=== PATIENT | male | born 1955 | race African-American/Black ===

== ENCOUNTER → 2017-02-26 | Outpatient (CLI) | payer MEDICARE, OTHER ==
[2015-08-31 14:58] VITALS: BP 146/88
[~2017-02-26] MED LIST: CLON1TAB3 PO; ZIPR60CA3 PO; ZIPR80CA3 PO
--- NOTE | 2017-02-26 08:30 | RAD ---
Indication injury to the long finger one week ago. Persistent pain. AP oblique and lateral views of the right hand were obtained. No bony abnormality is seen
== END | disposition home or self-care (01) ==
LOC: RAD 06:16
PROVIDERS: ATTEND Internal Medicine
DX: S60.221A Contusion of right hand, initial encounter (principal); X58.XXXA Exposure to other specified factors, initial encounter; Y93.89 Activity, other specified; Y92.89 Other specified places as the place of occurrence of the external cause; Y99.8 Other external cause status
CPT/HCPCS: 73130

== ENCOUNTER → 2018-11-15 | Day surgery (SDC) | payer OTHER ==
[~2018-11-15] MED LIST changes: +ATOR10TA60 PO; +CLON1TAB11 PO; -CLON1TAB3 PO; +FLUO20CA8 PO; +IV RINGERS,LACTATED 1000ML 1,000 ML IV SCH; +LIDOCAINE 1% PF 2 ML VIAL. ID PRN; +PROCHLORPERAZINE 10 MG/2 ML VIAL. IV PRN; +PROPOFOL 20 ML IV ONE; +fentaNYL PF VIAL 100 MCG/2 ML VIAL IV PRN
--- NOTE | 2018-11-15 12:36 | PDOC1 ---
History and Physical Date of Admission Date of Admission DATE: 11/15/18 TIME: 12:31 Source Source: Chart review, Patient History of Present Illness History of Present Illness 63 y/o male with no prior screening here for screening colonoscopy. No GI complaints and no GI family history other than gastric cancer in father. Past Medical History Cardiovascular: HTN, Hyperlipidemia Psych: Depression Musculoskeletal: Osteoarthritis Past Surgical History Past Surgical History: Total knee replacement Family History Family History: Diabetes Social History Smoke: No ALCOHOL: rare Drugs: None Current Medications Current Medications Current Medications Fentanyl Citrate (Fentanyl 2ml Vial) 25 mcg PRN Q5MIN PRN IV MILD PAIN; Start 11/15/18 at 07:00; Stop 11/16/18 at 06:59 Fentanyl Citrate (Fentanyl 2ml Vial) 50 mcg PRN Q5MIN PRN IV MODERATE TO SEVERE PAIN; Start 11/15/18 at 07:00; Stop 11/16/18 at 06:59 Ringer's Solution 1,000 ml @ 30 mls/hr Q24H IV Last administered on 11/15/18at 12:24; Start 11/15/18 at 07:00; Stop 11/15/18 at 18:59 Lidocaine HCl (Xylocaine-Mpf 1% 2ml Vial) 2 ml PRN 1X PRN ID IV START; Start at 07:00; Stop 11/16/18 at 06:59 Prochlorperazine Edisylate (Compazine) 5 mg PACU PRN PRN IV NAUSEA, MRX1; Start 11/15/18 at 07:00; Stop 11/16/18 at 06:59 Active Scripts Active Reported Atorvastatin Calcium 10 Mg Tablet 10 Mg PO HS Fluoxetine Hcl 20 Mg Capsule 20 Mg PO DAILY Ziprasidone Hcl 60 Mg Capsule 60 Mg PO BID Ziprasidone Hcl 80 Mg Capsule 80 Mg PO BID Clonazepam 1 Mg Tablet 1 Tab PO QHS Allergies Allergies: Coded Allergies: oxycodone (Verified Adverse Reaction, Intermediate, Nausea and Vomiting, ) ROS Review of System Otherwise negative. Physical Exam General: Alert, Oriented X3, Cooperative, No acute distress Lungs: Clear to auscultation Heart: S1S2, RRR, no gallops, no murmurs Abdomen: Normal bowel sounds, Soft, No tenderness, No hepatosplenomegaly, No masses Rectal Exam: deferred (to time of procedure) Extremities: No cyanosis, No edema Skin: No significant lesion Neuro: Normal speech, Strength at 5/5 X4 ext, Normal tone, Sensation intact, Cranial nerves 3-12 NL, Reflexes 2+ Psych/Mental Status: Mental status NL, Mood NL Vitals Vitals Vital Signs Date Time Temp Pulse Resp B/P (MAP) Pulse Ox O2 Delivery O2 Flow Rate FiO2 11/15/18 12:16 97.8 87 20 100 97.8 VTE Prophylaxis Ordered VTE Prophylaxis Devices: No VTE Pharmacological Prophylaxi: No Assessment/Plan Assessment/Plan IMP: Historically at average risk for CRC. PLAN: Screening colonoscopy. JORGE ALBERTO GIBBONS MD Nov 15, 2018 12:36
--- NOTE | 2018-11-15 13:19 | PDOC4 ---
PROCEDURE Procedure Colonoscopy with biopsy Indication: CRC screening Meds: per anesthesia Findings: JAMIE: normal --'scope advanced to cecum. Mucosa normal. No diverticular disease. --2mm sessile polyp, distal sigmoid, biopsied off. --Grade I internal hemorrhoids on retroflex. Otherwise normal exam. sadaf. well. IMP: small polyp IH's REC: Resume home meds and diet. Await path. F/u with me in 2 weeks. Repeat colonoscopy pending review of path. Thanks. JORGE ALBERTO GIBBONS MD Nov 15, 2018 13:19
[2018-11-15 13:50] VITALS: BP 126/82
--- NOTE | 2018-11-16 16:07 | PATHOLOGY ---
[facility] Accession Number: [id number] . 01 Material submitted: . DISTAL SIGMOID POLYP . 01 Clinical history: . Screening . 02 Diagnosis: Colon biopsy, distal sigmoid polyp: - Hyperplastic polyp. (JPM:[facility] 11/16/2018) P/11/16/2018 . 02 Comment: There are no adenomatous changes or evidence of malignancy. (JPM:[facility] 11/16/2018) . 02 Electronically signed: . Mynor Welch MD, Pathologist NPI- [id number] . 01 Gross description: . Received in formalin labeled "Flash Loaiza, distal sigmoid polyp," is a single segment of verduzco soft tissue measuring 0.3 cm in maximum dimension. The specimen is entirely submitted in cassette A1. (TSD; 11/15/2018) TOB/TOB . 02 Pathologist provided ICD-10: K63.5 . 02 CPT . 542761 Specimen Comment: A courtesy copy of this report has been sent to Specimen Comment: [phone], . Specimen Comment: Report sent to / DR FELDER Specimen Comment: A duplicate report has been generated due to demographic updates. Performed at: 01 [facility] [address], [place] [id number] MD Matthew Mai MD Phone: [phone] Performed at: 02 [facility] [address], [place] [id number] MD Mynor Welch MD Phone: [phone]
== END | disposition home or self-care (01) ==
LOC: ENDOS 11:40
PROVIDERS: ATTEND Internal Medicine Gastroenterology
DX: Z12.11 Encounter for screening for malignant neoplasm of colon (principal); K63.5 Polyp of colon; K64.0 First degree hemorrhoids; I10 Essential (primary) hypertension; E78.5 Hyperlipidemia, unspecified; F32.9 Major depressive disorder, single episode, unspecified; M19.90 Unspecified osteoarthritis, unspecified site; Z88.5 Allergy status to narcotic agent; Z83.3 Family history of diabetes mellitus; Z72.89 Other problems related to lifestyle; Z79.899 Other long term (current) drug therapy; Z96.653 Presence of artificial knee joint, bilateral; Z80.0 Family history of malignant neoplasm of digestive organs; Z98.890 Other specified postprocedural states
CPT/HCPCS: 45380; 88305; J2704

== ENCOUNTER → 2019-02-01 | Outpatient (CLI) | payer OTHER ==
[2018-11-15 13:50] VITALS: BP 126/82
[~2019-02-01] MED LIST changes: -IV RINGERS,LACTATED 1000ML 1,000 ML IV SCH; -LIDOCAINE 1% PF 2 ML VIAL. ID PRN; -PROCHLORPERAZINE 10 MG/2 ML VIAL. IV PRN; -PROPOFOL 20 ML IV ONE; -fentaNYL PF VIAL 100 MCG/2 ML VIAL IV PRN
--- NOTE | 2019-02-01 07:56 | RAD ---
CHEST PA LATERAL History: Cough for 4 months Comparison: August 13, 2015 Findings: 2 views of the chest are submitted. There is again azygos fissure. There is similar mild elevation of the right hemidiaphragm. Heart size is stable, within normal limits. There is no new lobar consolidation, pleural fluid, pneumothorax. Impression: 1. No acute radiographic abnormality is identified. Electronically signed by: Guille Pagna MD (02/01/2019 7:53 AM) [id number]
== END | disposition home or self-care (01) ==
LOC: RAD 06:37
PROVIDERS: ATTEND Internal Medicine
DX: R05 Cough (principal)
CPT/HCPCS: 71046